=== PATIENT | male | born 1945 | race Caucasian/White ===

== ENCOUNTER → 2021-04-02 | Outpatient (CLI) | payer MEDICARE, OTHER | LOC: RAD 13:52 | DX: R05 Cough (principal) ==

== ENCOUNTER → 2021-05-16 | Outpatient (CLI) | payer MEDICARE, OTHER | LOC: VAS 10:24 → RAD 10:30 → VAS 10:30 | DX: H34.8190 Central retinal vein occlusion, unspecified eye, with macular edema (principal); I65.21 Occlusion and stenosis of right carotid artery ==

== ENCOUNTER → 2021-05-17 | Outpatient (CLI) | payer MEDICARE, OTHER | LOC: LAB 08:49 | PROVIDERS: Family Medicine | DX: G31.9 Degenerative disease of nervous system, unspecified (principal); M47.812 Spondylosis without myelopathy or radiculopathy, cervical region; I65.21 Occlusion and stenosis of right carotid artery | CPT/HCPCS: Q9967 ==